=== PATIENT | male | born 1995 | race African-American/Black ===

== ENCOUNTER 2017-10-30 21:46 | Emergency (ER) | payer SELFPAY ==
[~2017-10-30] VITALS: Ht 190.5 cm; Wt 86.4 kg
[2017-10-30 22:11] VITALS: Ht 190.5 cm; Wt 86.4 kg
[2017-10-30] MEDS ORDERED: ULTRAM50 MG PO (23:58)
[2017-10-31 03:07] VITALS: BP 117/58
== END 2017-10-31 00:39 | disposition home or self-care (01) ==
LOC: D.ER 21:46
DX: S93.402A Sprain of unspecified ligament of left ankle, initial encounter (principal); Y93.67 Activity, basketball; Y92.019 Unspecified place in single-family (private) house as the place of occurrence of the external cause

== ENCOUNTER 2019-06-24 00:39 | Emergency (ER) | payer SELFPAY ==
[~2019-06-24] VITALS: Ht 190.5 cm; Wt 84.1 kg
[~2019-06-24 00:39] MED LIST: ULTRAM50 MG PO
[2019-06-24 00:42] VITALS: BP 146/54; Ht 190.5 cm; Wt 84.1 kg
== END 2019-06-24 01:20 | disposition home or self-care (01) ==
LOC: D.ER 00:39
DX: J02.0 Streptococcal pharyngitis (principal); Z72.0 Tobacco use

== ENCOUNTER 2019-09-02 10:50 | Emergency (ER) | payer MEDICAID ==
[~2019-09-02] VITALS: Ht 190.5 cm; Wt 90.0 kg
[2019-09-02 10:59] VITALS: Ht 190.5 cm; Wt 90.0 kg
[2019-09-02 11:40] VITALS: BP 130/62
== END 2019-09-02 11:46 | disposition home or self-care (01) ==
LOC: D.ER 10:50
DX: J02.9 Acute pharyngitis, unspecified (principal); Z72.0 Tobacco use

== ENCOUNTER 2019-11-02 22:46 | Emergency (ER) | payer MEDICAID ==
[~2019-11-02] VITALS: Ht 190.5 cm; Wt 88.6 kg
[2019-11-02 23:03] VITALS: BP 130/77; Ht 190.5 cm; Wt 88.6 kg
[2019-11-03] MEDS ORDERED: NAPROSYN500 MG PO (00:24)
== END 2019-11-03 00:46 | disposition home or self-care (01) ==
LOC: D.ER 22:46
DX: M25.562 Pain in left knee (principal); S76.112A Strain of left quadriceps muscle, fascia and tendon, initial encounter; W19.XXXA Unspecified fall, initial encounter; Y93.67 Activity, basketball; Y92.9 Unspecified place or not applicable